=== PATIENT | female | born 1995 | race Caucasian/White ===

== ENCOUNTER 2019-08-06 09:10 | Emergency (ER) | payer OTHER ==
[~2019-08-06] VITALS: Ht 167.6 cm; Wt 81.6 kg
[~2019-08-06 09:10] MED LIST: NORE-43 PO
[2019-08-06 09:18] VITALS: BP 146/95
[2019-08-06] MEDS ORDERED: DICL50TA2 PO (09:41)
[2019-08-06] MEDS ORDERED: CYCL10TA2 PO (09:41)
[2019-08-06] MEDS ORDERED: METH4TAB2 PO (09:41)
--- NOTE | 2019-08-06 09:41 | PHYS DOC ---
Past Medical History Past Medical History: No Pertinent History Past Surgical History: Other Alcohol Use: None Drug Use: None Adult General Chief Complaint Chief Complaint: BACK PAIN OR INJURY HPI HPI Patient is a 23 year old female with no significant medical history who presents to the ED today complaining of 8 out of 10 throbbing intermittent mid back pain with spasms that began yesterday after she bent over to pick something "light" from the floor. Patient denies falling. Denies any pain radiating to bilateral upper or lower extremities. Denies any numbness or tingling to bila teral upper and lower extremities. Denies any loss of bowel/bladder function. She states the pain is worse when she tries to lift heavy items. She states at work she is required to lift heavy things and this is concerning to her because she cannot return to work and be able to lift anything heavy today. She works for animal [employer]. Review of Systems Review of Systems Constitutional: Denies fever or chills [] GI: Denies abdominal pain, nausea, vomiting, bloody stools or diarrhea [] : Denies dysuria or hematuria [] Musculoskeletal: Reports mid back pain Integument: Denies rash or skin lesions [] Neurologic: Denies headache, focal weakness or sensory changes [] All other systems were reviewed and found to be within normal limits, except as documented in this note. Allergies Allergies Allergies Coded Allergies Type Severity Reaction Last Updated Verified amoxicillin trihydrate Allergy Unknown 08/06/19 Yes potassium clavulanate Allergy Unknown 08/06/19 Yes Physical Exam Physical Exam Constitutional: Well developed, well nourished, no acute distress, non-toxic appearance. [] Abdomen: Bowel sounds normal, soft, no tenderness, no masses, no pulsatile masses. [] Skin: Warm, dry, no erythema, no rash. [] Back: Diffuse paraspinal muscle tenderness to bilateral thoracic spine, no midline thoracic spine tenderness, no CVA tenderness. [] Extremities: No tenderness, no cyanosis, no clubbing, ROM intact, no edema. [] Neurologic: Alert and oriented X 3, normal motor function, normal sensory function, no focal deficits noted. [] Psychologic: Affect normal, judgement normal, mood normal. [] Current Patient Data Vital Signs Vital Signs Date Time Temp Pulse Resp B/P (MAP) Pulse Ox O2 Delivery O2 Flow Rate FiO2 08/06/19 09:18 98.7 66 18 146/95 (112) 100 Room Air 98.7 EKG EKG [] Radiology/Procedures Radiology/Procedures [] Course & Med Decision Making Course & Med Decision Making Pertinent Labs and Imaging studies reviewed. (See chart for details) This is a 23-year-old female patient presenting to the ED today with thoracic strain that began after she bent over to pick something like from the floor yesterday. Supportive care measures discussed including the use of a heating pad, stretches. Provided a note for work. Follow-up with PCP in 1-2 weeks. Dragon Disclaimer Dragon Disclaimer This electronic medical record was generated, in whole or in part, using a voice recognition dictation system. Departure Departure Impression: Primary Impression: Acute thoracic myofascial strain Disposition: 01 HOME, SELF-CARE Condition: STABLE Referrals: UNKNOWN PCP NAME (PCP) follow up with your doctor in 1-2 weeks Patient Instructions: Thoracic Strain, [id number] Additional Instructions: You were evaluated in the emergency room for thoracic muscle strain. Consider using a heating pad, take the prescribed medications as ordered. Follow-up with your doctor in one week Scripts Cyclobenzaprine Hcl (CYCLOBENZAPRINE HCL) 10 Mg Tablet 1 TAB PO TID, #30 TAB Prov: STEVIE YATES APRN 08/06/19 Diclofenac Potassium (DICLOFENAC POTASSIUM) 50 Mg Tablet 1 TAB PO BID, #20 TAB 0 Refills Prov: STEVIE YATES APRN 08/06/19 Methylprednisolone (MEDROL) 4 Mg Tab.ds.pk 1 PKG PO UD, #1 PKG Prov: STEVIE YATES APRN 08/06/19 Problem Qualifiers Primary Impression: Acute thoracic myofascial strain Encounter type: initial encounter Qualified Codes: S29.019A - Strain of muscle and tendon of unspecified wall of thorax, initial encounter STEVIE YATES APRN Aug 06, 2019 09:41
[2019-08-06] MEDS ORDERED: diazePAM 5 MG TABLET PO ONE (09:45)
[2019-08-06] MEDS ORDERED: predniSONE 10 MG TABLET PO ONE (09:45)
[2019-08-06] MEDS ORDERED: HYDROcodone/APAP 5/325MG 1 TAB TABLET PO ONE (09:45)
== END 2019-08-06 10:18 | disposition home or self-care (01) ==
LOC: ER 09:10
DX: S29.012A Strain of muscle and tendon of back wall of thorax, initial encounter (principal); Z88.1 Allergy status to other antibiotic agents; Z88.8 Allergy status to other drugs, medicaments and biological substances; X50.9XXA Other and unspecified overexertion or strenuous movements or postures, initial encounter; Y93.89 Activity, other specified; Y92.89 Other specified places as the place of occurrence of the external cause; Y99.8 Other external cause status
CPT/HCPCS: 99284; J7512